=== PATIENT | female | born 1990 | race Caucasian/White ===

== ENCOUNTER 2021-12-08 11:39 | Emergency (ER) | payer OTHER, SELFPAY ==
--- NOTE | 2021-12-08 11:46 | ED.URI ---
HPI - URI/Sore Throat General Chief Complaint: Upper Respiratory Infection Stated Complaint: cough burning chest Time Seen by Provider: 12/08/21 11:45 Source: patient and RN notes reviewed Mode of arrival: ambulatory Limitations: no limitations History of Present Illness HPI Narrative: 31-year-old female presents with concern for cough, chest burning. Reports she started having symptoms on Monday but most of those symptoms have resolved. She reports the cough and the chest burning continue. Reports she has been taking [id number] medications such as Tylenol, ibuprofen and Mucinex. She reports initially having body aches, she no longer has body aches chills, fever. She denies shortness of breath MD elicited complaint: cough and sore throat Related Data Home Medications Medication Instructions Recorded Confirmed norethindrone (contraceptive) 0.35 mg PO DAILY 12/08/21 12/08/21 Allergies Allergy/AdvReac Type Severity Reaction Status Date / Time No Known Allergies Allergy Unverified 04/05/16 18:26 Review of Systems Review of Systems: CONSTITUTIONAL: Denies malaise, chills, sweats, or fever. EYES: Denies visual changes, redness, or discharge. ENT: Denies rhinorrhea, congestion, sinus pain, otalgia and sore throat. CARDIOVASCULAR: Denies chest pain, palpitations, or edema. RESPIRATORY: Reports cough. Denies dyspnea. GASTROINTESTINAL: Denies abdominal pain, nausea, vomiting, diarrhea SKIN: Denies rash or itching. MUSCULOSKELETAL: Denies myalgia. NEUROLOGIC: Denies headache. All systems reviewed & are unremarkable except as noted in HPI and below PMFSH Comments At time of signature, agree with nursing past medical, surgical, social and family history. There is no relevant family history pertinent to the presenting complaint Exam Narrative: GENERAL: Well-appearing, well-nourished, and in no acute distress. HEAD: Normocephalic EYES: PERRLA, conjunctivae clear ENT: Nares clear. Mucous membranes moist. TM pearly daly with dull light reflex bilaterally; no tragal tenderness. Oropharynx not erythematous without lesions. Tonsils not enlarged and without exudate, no drooling, no trismus, uvula midline. Mild hoarse voice NECK: Supple. No lymphadenopathy CHEST: Scattered expiratory wheeze, otherwise clear to auscultation, breath sounds equal. No rhonchi, rales, or stridor. No respiratory distress, speaks in full sentences. HEART: Regular rate and rhythm. No murmur heard. SKIN: Warm, dry, no rash. NEURO: Alert and oriented x3. PSYCH: Normal mood and affect Course Course Emergency Course: Patient is aware of diagnosis, understands and agrees to treatment plan. Anticipatory guidance given. Patient agrees to follow-up as directed and is aware of reasons to seek care at the emergency department. Portions of this record may have been created with voice recognition software Level of Care: Express Care Visit Vital Signs Vital signs: Reviewed. Patient has been instructed to follow up with her primary care provider within the next week regarding her elevated blood pressure today. MDM - URI/Sore Throat MDM Narrative Medical decision making narrative: Differential diagnosis considered: Oseguera virus, strep pharyngitis, allergic rhinitis, upper respiratory tract infection, sinusitis, rhinosinusitis, nasopharyngitis. viral pharyngitis, otitis media, otitis externa, pneumonia, bronchitis, viral cough syndrome, viral syndrome, and influenza. Exam findings show no acute concerns or changes; patient is non-toxic appearing and is in no distress. Patient is appropriate for outpatient treatment and follow-up. Lab Data Attestation: I reviewed the patient's lab results. Critical Care Time Critical Care Time Critical Care Time: No Discharge Plan Discharge Clinical Impression: Bronchitis Patient Disposition: Home, Self-Care Condition: Stable Instructions: How to Use a Metered-Dose Inhaler (ED), Acute Bronchitis (ED) Additional I
[2021-12-08 11:49] VITALS: BP 144/92; PULSE 83; RESP 18; TEMP 36.9; O2SAT 100
== END 2021-12-08 12:11 | disposition home or self-care (01) ==
PROVIDERS: Emergency Provider Nurse Practitioner
DX: J40 Bronchitis, not specified as acute or chronic (principal)
CPT/HCPCS: 99203; G0463

== ENCOUNTER 2024-05-02 08:34 | Outpatient (CLI) | payer OTHER, SELFPAY ==
[2024-05-02 19:22] LABS: Hematocrit 43.4 % (37.0-47.0); Hemoglobin 14.4 g/dL (12.0-15.0); Mean Corpuscular HGB Conc 33.2 g/dl (32-36); Mean Corpuscular Hemoglobin 30.8 pg (26-34); Mean Corpuscular Volume 92.9 fl (80-100); Mean Platelet Volume 10.4 fl (7.4-10.4); Platelet Count Result 281 k/mm3 (150-375); Red Blood Count 4.67 M/mm3 (4.2-5.4); Red Cell Distribution Width 13.7 % (11.5-14.5); White Blood Count 4.6 K/mm3 (4.5-10.0)
[2024-05-02 19:41] LABS: Alanine Aminotransferase 18 U/L (6-35); Albumin Level 4.2 g/dL (3.5-5.1); Alkaline Phosphatase 53 U/L (38-126); Anion Gap 11 mmol/L (4-12); Aspartate Amino Transferase 70 U/L (14-36); Bilirubin,Total 0.3 mg/dL (0.2-1.3); Blood Urea Nitrogen 13 mg/dL (7-17); Calcium 9.1 mg/dL (8.4-10.2); Carbon Dioxide 23 mmol/L (22-30); Chloride 102 mmol/L (98-107); Cholesterol 155 mg/dL (0-200); Estimated Glomerular Filt Rate > 60; Glucose 82 mg/dL (65-110); HDL Direct 51 mg/dL; Potassium 4.3 mmol/L (3.4-5.0); Sodium 136 mmol/L (137-145); Triglycerides 98 mg/dL (<150)
[2024-05-02 19:52] LABS: LDL Cholesterol Direct 75 mg/dL
[2024-05-02 20:12] LABS: Thyroid Stimulating Hormone 0.208 uIU/mL (0.465-4.680)
[2024-05-02 20:47] LABS: Folic Acid 12.6 ng/mL (2.76->20)
[2024-05-02 20:48] LABS: Free T4 Free Thyroxine 1.02 ng/mL (0.78-2.19); Vitamin D 25 Hydroxy 49.2 ng/mL
== END 2024-05-02 08:35 | disposition home or self-care (01) ==
LOC: ANHBWCLAB 08:35
PROVIDERS: PCP Nurse Practitioner Adult Health; Visit Provider Nurse Practitioner Adult Health
DX: R53.83 Other fatigue (principal); Z13.9 Encounter for screening, unspecified
CPT/HCPCS: 36415; 80053; 80061; 82306; 82607; 82746; 84439; 84443; 85027

== ENCOUNTER 2024-05-09 10:12 | Outpatient (CLI) | payer OTHER, SELFPAY ==
--- NOTE | ~2024-05-09 | US_ITS ---
EXAMINATION: US thyroid DATE: 05/09/2024 10:31 INDICATION: Other specified abnormal findings of blood chemistry. TECHNIQUE: Multiple ultrasound images of the thyroid were obtained. COMPARISON: None. FINDINGS: The right thyroid lobe measures 4.7 x 1.4 x 1.5 cm. The left thyroid lobe measures 5.2 x 1.9 x 1.9 c m. In the right thyroid lobe, there is a 9 mm solid, hypoechoic, wider than tall nodule with smooth margin and punctate echogenic foci (TI-RADS TR5). In the left thyroid lobe, there is a 2.7 cm mixed c ystic and solid, hypoechoic, wider than tall nodule with smooth margin without echogenic foci (TR3). IMPRESSION: 1. Thyroid nodules. Thyroid ultrasound is recommended in one year. Reviewed, dictated and finalized at location A.
== END 2024-05-09 10:13 ==
LOC: GOSHIMG 10:13
PROVIDERS: PCP Nurse Practitioner Adult Health; Visit Provider Nurse Practitioner Adult Health
DX: E04.2 Nontoxic multinodular goiter (principal); R79.89 Other specified abnormal findings of blood chemistry
CPT/HCPCS: 76536

== ENCOUNTER 2024-05-09 10:25 | Outpatient (CLI) | payer OTHER, SELFPAY ==
[2024-05-14 17:04] LABS: Thyroid Peroxidase Antibodies <1 IU/mL (<9)
== END 2024-05-09 10:26 | disposition home or self-care (01) ==
LOC: ANHGOSHLAB 10:27
PROVIDERS: PCP Nurse Practitioner Adult Health; Visit Provider Nurse Practitioner Adult Health
DX: Z13.9 Encounter for screening, unspecified (principal)
CPT/HCPCS: 36415; 86376

== ENCOUNTER 2025-05-15 08:14 | Outpatient (CLI) | payer OTHER, MEDICAID, SELFPAY ==
--- OUTSIDE RECORDS SUMMARY | 2025-05-15 08:17 | XMS_ITS | Clinical Summary ---
Author Organization [facility] [address] [facility] Address [address] [place] [address] Care Team Providers Care Lard Maker Name Role Phone Unknown, Notinfile Primary Care Provider Unavail able Social History Tobacco Use Types Packs/Day Years Used Date Smoking Tobacco: Never Assessed Personal Safety Answer Date Recorded Getting School Help Needed Not on file 11/23 Comments Unknown Sex and Gender Information Value Date Recorded Sex Assigned at Not on file Legal Sex Female 7:18 PM [employer] Gender Identity Not on file Sexual Orientation Not on file Plan of Treatment Not on file Insurance CHOICE PLUS Care Teams Lard Maker Relationship Specialty Start Date End Date Unknown, Brown PCP - General 08/12/21
[2025-05-15 19:02] LABS: Hematocrit 41.2 % (37.0-47.0); Hemoglobin 13.6 g/dL (12.0-15.0); Mean Corpuscular HGB Conc 33.0 g/dl (32-36); Mean Corpuscular Hemoglobin 30.4 pg (26-34); Mean Corpuscular Volume 92.2 fl (80-100); Platelet Count Result 279 k/mm3 (150-375); Red Blood Count 4.47 M/mm3 (4.2-5.4); White Blood Count 4.7 K/mm3 (4.5-10.0)
[2025-05-15 19:06] LABS: Alanine Aminotransferase 17 U/L (6-35); Albumin Level 4.0 g/dL (3.5-5.1); Alkaline Phosphatase 57 U/L (38-126); Anion Gap 5 mmol/L (4-12); Aspartate Amino Transferase 63 U/L (14-36); Bilirubin,Total 0.3 mg/dL (0.2-1.3); Blood Urea Nitrogen 12 mg/dL (7-17); Calcium 9.1 mg/dL (8.4-10.2); Carbon Dioxide 26 mmol/L (22-30); Chloride 104 mmol/L (98-107); Cholesterol 147 mg/dL (0-200); Estimated Glomerular Filt Rate > 60; Glucose 84 mg/dL (65-110); HDL Direct 44 mg/dL; Potassium 4.2 mmol/L (3.4-5.0); Sodium 135 mmol/L (137-145); Total Protein 6.7 g/dL (6.3-8.2); Triglycerides 65 mg/dL (<150)
[2025-05-15 19:37] LABS: Thyroid Stimulating Hormone 0.068 uIU/mL (0.465-4.680)
[2025-05-15 19:45] LABS: Free T4 Free Thyroxine 1.37 ng/dL (0.78-2.19)
== END 2025-05-15 08:15 | disposition home or self-care (01) ==
LOC: ANHBWCLAB 08:15
PROVIDERS: PCP Nurse Practitioner Adult Health; Visit Provider Nurse Practitioner Adult Health
DX: Z00.00 Encounter for general adult medical examination without abnormal findings (principal); R79.89 Other specified abnormal findings of blood chemistry
CPT/HCPCS: 36415; 80053; 80061; 84439; 84443; 85027

== ENCOUNTER 2025-06-06 09:51 | Outpatient (CLI) | payer OTHER, SELFPAY ==
--- NOTE | ~2025-06-06 | US_ITS ---
US thyroid INDICATION: Toxic thyroid nodule TECHNIQUE: Real-time sonographic images of the thyroid gland were obtained. COMPARISON: Ultrasound dated 05/09/2024 FINDINGS: The right thyroid lobe measures 4.5 x 1.5 x 1.6 cm. The left thyroid lobe measures 4.2 x 1.9 x 1.7 cm. There are cysts in both lobes of the thyroid gland, largest on the left measuring 2.7 cm without significant change from prior examination. In the right thyroid lobe there is an oval solid hypoechoic wider than tall smoothly marginated mass with echogenic foci measuring 9 mm, TR 5, without significant change. IMPRESSION: 1. Thyroid nodules. No masses meet sonographic criteria for biopsy. Follow-up ultrasound in 12 months recommended. Reviewed, dictated and finalized at location O.
== END 2025-06-06 09:52 | disposition home or self-care (01) ==
LOC: MICIMG 09:51
PROVIDERS: PCP Nurse Practitioner Adult Health; Visit Provider Nurse Practitioner Adult Health
DX: E04.2 Nontoxic multinodular goiter (principal)
CPT/HCPCS: 76536

== ENCOUNTER 2025-07-27 15:02 | Emergency (ER) | payer OTHER, SELFPAY ==
[2025-07-27 15:11] VITALS: BP 141/83; PULSE 106; RESP 20; TEMP 36.4; O2SAT 100
--- NOTE | 2025-07-27 15:14 | ED_ITS ---
HPI - URI/Sore Throat General Chief Complaint: Upper Respiratory Infection Stated Complaint: strep throat Time Seen by Provider: 07/27/25 15:14 Source: patient, RN notes reviewed and old records reviewed Mode of arrival: ambulatory Limitations: no limitations History of Present Illness HPI Narrative: 35-year-old female presents to the [facility] with complaints of a sore throat since Monday, 2 days. Denies any other symptoms. has been taking Motrin and Tylenol. Onset (ago): day(s) (2) Treatments prior to arrival: acetaminophen and ibuprofen Related Data Home Medications ?Medication ?Instructions ?Recorded ?Confirmed ?Last Taken ?Type norethindrone (contraceptive) 0.35 0.35 mg PO DAILY 06/25/25 Unknown History mg tablet Allergies Allergy/AdvReac Type Severity Reaction Status Date / Time No Known Allergies Allergy Verified 07/27/25 15:11 Review of Systems Review of Systems: All systems reviewed & are unremarkable except as noted in HPI and below Constitutional: Constitutional: Reports no additional constitutional complaints ENT: Reports as per HPI, Reports sore throat and Denies throat swelling Cardiovascular: Cardiovascular: Reports no additional cardiovascular complaints, Denies chest pain and Denies dyspnea Respiratory: Respiratory: Reports no additional respiratory complaints, Denies chest congestion, Denies cough and Denies dyspnea Musculoskeletal: Musculoskeletal: Reports no additional musculoskeletal complaints Integumentary/Breasts: Skin/Breast: Reports system reviewed and no additional complaints, except as docu [facility] Family History Family History Grandparent Cancer Grandparent Cancer Grandparent Cancer Heart disease Diabetes mellitus Social History Social History Smoking status: Current every day smoker (vaping) Alcohol use details: does not drink Substance use type: does not use Do You Feel Safe in your Home?: Yes Lack of Transportation: No Lack of Food: Never True Current Housing: I Have Housing Concerned About Future Housing: No Difficulty Paying Gas/Electric Bills: No Difficulty Paying for Meds: No Currently Unemployed: Decline to Answer Education: High School Diploma/GED Living arrangements: with family Additional occupation/education comments: Homemaker Gender identity (if verbalized by the patient): Female Agree to blood products: Yes Comments At the time of my signature, I reviewed and agree with the nursing past medical, surgical, social, and family history. There is no relevant family history pertinent to the patient complaint. Exam Const: General: cooperative, healthy appearing, comfortable, no acute distress, well developed, alert and well nourished Nutritional Appearance: well nourished Orientation/consciousness: patient oriented x3 Limitations: no limitations HENMT: Head: normal to inspection Ears: hearing grossly normal bilaterally, external ears normal, TM's normal bilaterally, EAC's normal, mastoids normal and no periauricular adenopathy Face/Nose/Sinus: Normal external nose present, Normal nares present and Normal nasal mucous membranes and turbinates present Throat: uvula midline, abnormal tonsil bilateral erythema, exudates and hypertrophy 1+ and no uvular edema Eyes: General: appearance normal, both eyes and all related structures Alignment and Position: alignment normal Neck: Neck: normal visual inspection, full ROM, no lymphadenopathy and no meningeal signs Chest: Chest palpation & inspection: normal inspection of the chest Resp: Effort & Inspection: normal respiratory effort and able to speak in complete sentences Auscultation: clear to auscultation bilaterally, no crackles, no rales, no rhonchi and no wheezes Cardio: Rate: regular rate Skin: General skin exam: normal color and no rashes or lesions noted Neuro: General: patient oriented x3, gait normal, moves all extremities and no meningeal signs Cognition (Neuro): normal cognition Speech: normal speech Gait exam (Neuro): Normal gait present Extrem: General: normal to inspection, full ROM, capillary refill normal and normal gait Psych: Appearance: grossly normal and well kempt Mental Status: mental status grossly normal Speech and movement: Normal speech and movement present and Clear speech present Affect: normal affect Attitude: cooperative Course Course Level of Care: Express Care Visit Vital Signs Vital signs: Vital Signs Temperature 97.6 F 07/27/25 15:11 Pulse Rate 106 H 07/27/25 15:11 Respiratory Rate 20 07/27/25 15:11 Blood Pressure 141/83 H 07/27/25 15:11 Pulse Oximetry 100 07/27/25 15:11 Oxygen Delivery Room Air 07/27/25 15:11 Temperature 97.6 F 07/27/25 15:11 Pulse Rate 106 H 07/27/25 15:11 Respiratory Rate 20 07/27/25 15:11 Blood Pressure 141/83 H 07/27/25 15:11 Pulse Oximetry 100 07/27/25 15:11 Oxygen Delivery Room Air 07/27/25 15:11 Reviewed MDM - URI/Sore Throat MDM Narrative Medical decision making narrative: patient sitting in exam room. Patient is nontoxic, vitals are noted. Pulse slightly elevated at 106, blood pressure 141/83 otherwise vitals are stable. Patient presents 2 day history of sore throat. strep test positive patient is appropriate for outpatient treatment with close follow-up Discharge instructions reviewed with patient, as well as provided in writing per nursing staff. The instructions also include specific and strict return/GO TO THE ER as well as f/u information. All questions have been answered, and the patient deny any further questions with discharge and discharge plan. Some parts of this dictation were generated by voice recognition software and may contain typographical and/or grammatical inaccuracies. Differential Diagnosis Differential diagnosis: Likely upper respiratory infection, otitis media, sinusitis, viral infection, bronchitis, influenza and pharyngitis Lab Data Labs: Lab Results 07/27/25 Range/Units 15:17 POC Grp A Strep Screen Positive (Negative) reviewed Critical Care Time Critical Care Time Critical Care Time: No Discharge Plan Discharge Clinical Impression: Strep pharyngitis Patient Disposition: Home Condition: Stable Instructions: Antibiotic Form, Strep Throat (ED) Additional Instructions: today your blood pressure was 141/83 with recommended follow-up with primary care provider within 2 weeks to have this rechecked. After 24-48 hours on antibiotics, Throw the toothbrush away, start using a new one. Please be sure to wash bed linens especially pillow cases. Repeat once you finish the antibiotics. Do not share drinks. Take Motrin alternating with Tylenol for pain and fever alternating every 4 hours. Increase fluids, avoid caffeine. Give plenty of water, juice, Gatorade, Pedialyte, ice pops in Jell-O Follow up with Primary provider if not getting better this week For new or worsening symptoms go directly to the emergency room Patient Language: Slovak Prescriptions: New amoxicillin 875 mg tablet 875 mg PO Q12H Qty: 20 0RF No Action norethindrone (contraceptive) 0.35 mg tablet 0.35 mg PO DAILY Follow-up/Referrals: Andreia Fournier APRN [Primary Care Provider, Family Practice] - 2 Weeks Clinical Impression: Strep pharyngitis Stand Alone Forms: Work/School Release IP Time of Disposition: 15:22
[2025-07-27 15:19] LABS: EDSTREPNEGPOS1 Positive (Negative)
== END 2025-07-27 15:32 | disposition home or self-care (01) ==
PROVIDERS: Emergency Provider Nurse Practitioner; PCP Nurse Practitioner Adult Health
DX: J02.0 Streptococcal pharyngitis (principal); F17.290 Nicotine dependence, other tobacco product, uncomplicated
CPT/HCPCS: 87880; 99213; G0463